=== PATIENT | male | born 1960 | race African-American/Black ===

== ENCOUNTER 2016-07-04 10:53 | Inpatient (IN) | payer MEDICAID ==
[~2016-07-04] VITALS: Ht 193 cm; Wt 134.9 kg
[~2016-07-04 10:53] MED LIST: AMLO10TA2 PO; CANA300T OR; CEPH-37 PO; FLUO20CA19 PO; GLIP-115 PO; LISI10TA6 PO; METF-312 PO; METO25TA5 PO; NOR10T; PANT1INJ3 PO; ZOLP10TA6 PO
[2016-07-04] MEDS ORDERED: SODIUM CHLORIDE 0.9% 1,000 ML IV ONE (11:48)
[2016-07-04] MEDS ORDERED: MORPHINE SULFATE 4 MG/ML SYRG IV ONE (12:00)
[2016-07-04] MEDS ORDERED: ONDANSETRON HCL 4 MG/2 ML VIAL IV ONE (12:00)
[2016-07-04 12:37] LABS: Basophils # (auto) 0 uL; Basophils % (auto) 0.2 % (0.0-2.0); Eosinophils # (auto) 0.1 uL; Eosinophils % (auto) 0.5 % (0.0-7.0); Hematocrit 45.1 % (41.0-53.0); Hemoglobin 14.8 g/dL (13.5-17.5); Lymphocytes # (auto) 1.3 uL; Lymphocytes % (auto) 10.9 % (10.0-50.0); Mean Corpuscular Hgb Conc. 32.8 g/dL (32.0-36.0); Mean Corpuscular Volume 85.3 fL (80.0-100.0); Mean Platelet Volume 8.5 fL (7.4-10.4); Monocytes # (auto) 0.3 uL; Monocytes % (auto) 2.8 % (0.0-12.0); Neutrophils # (auto) 10.2 uL; Neutrophils % (auto) 85.6 % (37.0-80.0); Platelet Count (auto) 318 10^3/uL (140-450); Red Cell Distribution Width 14.3 % (11.6-16.0); White Blood Cell 11.9 10^3/uL (4.4-10.8)
[2016-07-04 12:50] LABS: INR 1.04 (0.9-1.15); Partial Thromboplastin Time 28.7 sec (22.64-33.71); Prothrombin Time 10.7 sec (9.37-12.3)
[2016-07-04] MEDS: SODIUM CHLORIDE 0.9% 1,000 ML IV SCH ×2 (12:51→23:45)
[2016-07-04] MEDS ORDERED: DEXTROSE (50%) 50ML SYRG IV PRN (13:00)
[2016-07-04] MEDS ORDERED: LORazepam 0.5 MG TAB PO PRN (13:00)
[2016-07-04] MEDS ORDERED: cefTRIAXone 1GM/50ML D5W 50 ML IV ONE (13:00)
[2016-07-04] MEDS ORDERED: MILK OF MAGNESIA 30ML SUSP PO PRN (13:00)
[2016-07-04] MEDS ORDERED: MORPHINE SULF INJ 2 MG/ML SYRINGE 1ML IV PRN (13:00)
[2016-07-04] MEDS ORDERED: PROMETHAZINE HCL 25 MG/ML 1ML IV PRN (13:00)
[2016-07-04] MEDS ORDERED: NITROGLYCERIN 0.4 MG SL TAB SL PRN (13:00)
[2016-07-04 13:06] LABS: Albumin 3.6 g/dL (3.4-5.0); BUN/Creatinine Ratio 12.6; Calcium 9.1 mg/dL (8.5-10.1); Magnesium 1.9 mg/dL (1.6-2.6); Potassium 4.3 mmol/L (3.5-5.1)
[2016-07-04 13:10] LABS: Bilirubin, Total 0.6 mg/dL (0.2-1.0); Total Protein 7.9 g/dL (6.4-8.2)
[2016-07-04] MEDS ORDERED: ENOXAPARIN SOD 40 MG/0.4 ML SYRINGE SC ONE (13:15)
[2016-07-04] MEDS ORDERED: FAMOTIDINE 20 MG TAB PO ONE (13:15)
[2016-07-04 15:13] LABS: Urine Bilirubin Negative (Negative); Urine Blood Negative /uL (Negative); Urine Color Yellow (Yellow); Urine Hyaline Cast FEW /lpf (0 - 2); Urine Ketone Negative (Negative); Urine Mucus FEW (None Seen); Urine Nitrite Negative (Negative); Urine RBC 1 /hpf (0 - 3); Urine Squamous Epithelial Cell FEW /hpf (<5); Urine pH 5.5 (5.0-8.0)
[2016-07-04 15:14] LABS: Urine Glucose 3+ mg/dL (Normal)
[2016-07-04] MEDS: MORPHINE SULF INJ 2 MG/ML SYRINGE 1ML IV PRN ×2 (16:39→23:45)
[2016-07-04] MEDS ORDERED: ACETAMINOPHEN 325 MG TAB PO ONE (17:00)
[2016-07-04] MEDS: metroNIDAZOLE 500MG/100ML 100 ML IV SCH ×2 (18:22→23:45)
[2016-07-04] MEDS: ACCU-CHEK COMFORT CURVE STRIP VI SCH ×2 (19:28→23:45)
[2016-07-04] MEDS: InsuLIN REG 1unit/0.01ml Soln (100units/ml) SC SCH ×2 (19:38→23:53)
[2016-07-04] MEDS: FAMOTIDINE 20 MG TAB PO SCH (21:51)
[2016-07-04 23:57] VITALS: BP 129/86
[2016-07-05] VITALS (7 sets, daily range): BP systolic 137–169; BP diastolic 71–96
[2016-07-05] MEDS: metroNIDAZOLE 500MG/100ML 100 ML IV SCH ×4 (05:54→23:38)
[2016-07-05] MEDS: ACCU-CHEK COMFORT CURVE STRIP VI SCH ×4 (05:54→23:38)
[2016-07-05] MEDS: InsuLIN REG 1unit/0.01ml Soln (100units/ml) SC SCH ×3 (05:55→18:11)
[2016-07-05] MEDS: MORPHINE SULF INJ 2 MG/ML SYRINGE 1ML IV PRN ×3 (06:28→14:00)
[2016-07-05 06:47] LABS: Basophils # (auto) 0 uL; Basophils % (auto) 0.1 % (0.0-2.0); Eosinophils # (auto) 0.1 uL; Eosinophils % (auto) 0.7 % (0.0-7.0); Hematocrit 39.5 % (41.0-53.0); Hemoglobin 12.8 g/dL (13.5-17.5); Lymphocytes # (auto) 1.1 uL; Mean Corpuscular Hemoglobin 27.9 pg (28.0-32.0); Mean Corpuscular Hgb Conc. 32.5 g/dL (32.0-36.0); Mean Corpuscular Volume 85.9 fL (80.0-100.0); Mean Platelet Volume 7.9 fL (7.4-10.4); Monocytes # (auto) 0.2 uL; Monocytes % (auto) 2.2 % (0.0-12.0); Neutrophils # (auto) 6.7 uL; Platelet Count (auto) 262 10^3/uL (140-450); Red Cell Distribution Width 14.1 % (11.6-16.0)
[2016-07-05 07:35] LABS: BUN/Creatinine Ratio 12.3; Bilirubin, Total 0.4 mg/dL (0.2-1.0); Calcium 8.2 mg/dL (8.5-10.1); Potassium 3.8 mmol/L (3.5-5.1); Total Protein 6.8 g/dL (6.4-8.2)
[2016-07-05] MEDS: SODIUM CHLORIDE 0.9% 1,000 ML IV SCH ×2 (09:03→18:30)
[2016-07-05] MEDS: cefTRIAXone 1GM/50ML D5W 50 ML IV SCH (09:08)
[2016-07-05] MEDS: FAMOTIDINE 20 MG TAB PO SCH ×2 (09:08→21:06)
[2016-07-05] MEDS: ENOXAPARIN SOD 40 MG/0.4 ML SYRINGE SC SCH (09:09)
[2016-07-05] MEDS ORDERED: MANNITOL FTV 25% 12.5 GM/50 ML 50 ML IV ONE ×2 (10:45→12:00)
[2016-07-06] MEDS: InsuLIN REG 1unit/0.01ml Soln (100units/ml) SC SCH ×3 (00:16→12:25)
[2016-07-06] MEDS: SODIUM CHLORIDE 0.9% 1,000 ML IV SCH (01:29)
[2016-07-06 05:30] VITALS: BP 141/87
[2016-07-06] MEDS: metroNIDAZOLE 500MG/100ML 100 ML IV SCH ×2 (05:38→11:45)
[2016-07-06] MEDS: ACCU-CHEK COMFORT CURVE STRIP VI SCH ×2 (06:19→11:45)
[2016-07-06 08:00] VITALS: BP 172/96
[2016-07-06] MEDS: cefTRIAXone 1GM/50ML D5W 50 ML IV SCH (09:38)
[2016-07-06] MEDS: ENOXAPARIN SOD 40 MG/0.4 ML SYRINGE SC SCH (10:42)
[2016-07-06] MEDS: FAMOTIDINE 20 MG TAB PO SCH (10:42)
[2016-07-06 13:00] VITALS: BP 173/88
[2016-07-06] MEDS ORDERED: amLODIPine BESYLATE 5 MG TAB PO ONE (16:15)
[2016-07-06] MEDS ORDERED: METOPROLOL TARTRATE 25 MG TAB PO ONE (16:15)
[2016-07-06] MEDS ORDERED: LISINOPRIL 10 MG TAB PO ONE (16:15)
[2016-07-06 16:16] VITALS: BP 179/88
== END 2016-07-06 17:30 | disposition home or self-care (01) | DRG 249 ==
LOC: ER 10:56 → TELE 10:57 → TELE-E-ADS 14:56 → TELE-CENTR 20:50 → CENTRAL 07-05 16:50
PROVIDERS: ADMIT Internal Medicine; ATTEND Internal Medicine Pulmonary Disease
DX: K52.9 Noninfective gastroenteritis and colitis, unspecified (principal); E11.22 Type 2 diabetes mellitus with diabetic chronic kidney disease; K76.0 Fatty (change of) liver, not elsewhere classified; N12 Tubulo-interstitial nephritis, not specified as acute or chronic; F11.20 Opioid dependence, uncomplicated; N20.0 Calculus of kidney; D72.829 Elevated white blood cell count, unspecified; N39.0 Urinary tract infection, site not specified; E78.5 Hyperlipidemia, unspecified; N18.9 Chronic kidney disease, unspecified; I12.9 Hypertensive chronic kidney disease with stage 1 through stage 4 chronic kidney disease, or unspecified chronic kidney disease; F32.9 Major depressive disorder, single episode, unspecified; G89.29 Other chronic pain; F17.210 Nicotine dependence, cigarettes, uncomplicated; Z83.3 Family history of diabetes mellitus; Z82.49 Family history of ischemic heart disease and other diseases of the circulatory system; Z98.890 Other specified postprocedural states; Z84.1 Family history of disorders of kidney and ureter
CPT/HCPCS: 36415; 71010; 74176; 80053; 80061; 81001; 82150; 82270; 82378; 82962; 83036; 83690; 83735; 84484; 85025; 85610; 85652; 85730; 86141; 87081; 87086; 87493; 93005; 94761; 96361; 96365; 96372; 96375; J0696; J1815; J2405; J3490

== ENCOUNTER 2016-08-01 08:56 | Inpatient (IN) | payer MEDICAID ==
[~2016-08-01] VITALS: Ht 193 cm; Wt 142.0 kg
[~2016-08-01 08:56] MED LIST changes: -CEPH-37 PO
[2016-08-01 09:37] LABS: Basophils # (auto) 0.1 uL; Basophils % (auto) 0.7 % (0.0-2.0); Eosinophils # (auto) 0.2 uL; Eosinophils % (auto) 1.5 % (0.0-7.0); Hemoglobin 13.1 g/dL (13.5-17.5); Lymphocytes # (auto) 2.8 uL; Lymphocytes % (auto) 25.3 % (10.0-50.0); Mean Corpuscular Hemoglobin 27.8 pg (28.0-32.0); Mean Corpuscular Hgb Conc. 32.8 g/dL (32.0-36.0); Mean Corpuscular Volume 84.7 fL (80.0-100.0); Mean Platelet Volume 8.2 fL (7.4-10.4); Monocytes # (auto) 0.6 uL; Monocytes % (auto) 4.9 % (0.0-12.0); Neutrophils # (auto) 7.6 uL; Neutrophils % (auto) 67.6 % (37.0-80.0); Platelet Count (auto) 296 10^3/uL (140-450); Red Cell Distribution Width 14.3 % (11.6-16.0); White Blood Cell 11.2 10^3/uL (4.4-10.8)
[2016-08-01 10:45] LABS: Albumin 3.6 g/dL (3.4-5.0); BUN/Creatinine Ratio 11.9; Bilirubin, Total 0.2 mg/dL (0.2-1.0); Calcium 8.9 mg/dL (8.5-10.1); Total Protein 7.4 g/dL (6.4-8.2)
[2016-08-01 11:04] LABS: Potassium 3.9 mmol/L (3.5-5.1)
[2016-08-01 12:25] LABS: Magnesium 2.1 mg/dL (1.6-2.6)
[2016-08-01 12:30] LABS: INR 0.98 (0.9-1.15); Partial Thromboplastin Time 29.3 sec (22.64-33.71); Prothrombin Time 10.1 sec (9.37-12.3)
[2016-08-01] MEDS ORDERED: KETOROLAC TROMETH 30 MG/ML 1ML VIAL IV ONE (14:30)
[2016-08-01] MEDS ORDERED: PANTOPRAZOLE SODIUM 40 MG/10 ML VIAL IV ONE (14:30)
[2016-08-01] MEDS ORDERED: cefTRIAXone 1GM/50ML D5W 50 ML IV ONE (14:30)
[2016-08-01] MEDS ORDERED: ONDANSETRON HCL 4 MG/2 ML VIAL IV ONE (14:30)
[2016-08-01] MEDS ORDERED: ONDANSETRON HCL 4 MG/2 ML VIAL IV PRN (16:30)
[2016-08-01] MEDS ORDERED: TEMAZEPAM 15 MG CAP PO PRN (16:30)
[2016-08-01] MEDS ORDERED: DEXTROSE (50%) 50ML SYRG IV PRN (16:30)
[2016-08-01] MEDS ORDERED: ACETAMINOPHEN 325 MG TAB PO PRN (16:30)
[2016-08-01] MEDS ORDERED: PANTOPRAZOLE 40 MG TAB PO ONE (16:30)
[2016-08-01] MEDS: ACCU-CHEK COMFORT CURVE STRIP VI SCH ×2 (17:00→22:12)
[2016-08-01 17:21] LABS: Urine Bilirubin Negative (Negative); Urine Blood Negative /uL (Negative); Urine Color Yellow (Yellow); Urine Glucose TRACE mg/dL (Normal); Urine Hyaline Cast FEW /lpf (0 - 2); Urine Ketone Negative (Negative); Urine Nitrite Negative (Negative); Urine RBC 1 /hpf (0 - 3); Urine Squamous Epithelial Cell FEW /hpf (<5); Urine pH 5.5 (5.0-8.0)
[2016-08-01] MEDS: InsuLIN REG 1unit/0.01ml Soln (100units/ml) SC SCH ×2 (19:15→22:49)
[2016-08-01] MEDS ORDERED: FAMOTIDINE 20 MG TAB PO SCH (22:00)
[2016-08-01] MEDS: MORPHINE SULF INJ 2 MG/ML SYRINGE 1ML IV PRN (22:10)
[2016-08-01] MEDS: SODIUM CHLOR 0.9% PF (SALINE LOCK) 10ML VIAL IV SCH (22:11)
[2016-08-01] MEDS: metroNIDAZOLE 500MG/100ML 100 ML IV SCH (22:11)
[2016-08-01] MEDS: METOPROLOL TARTRATE 25 MG TAB PO SCH (22:12)
[2016-08-01 22:45] VITALS: BP 153/96
[2016-08-01 23:14] VITALS: BP 153/96
[2016-08-02] MEDS: MORPHINE SULF INJ 2 MG/ML SYRINGE 1ML IV PRN ×3 (04:50→20:45)
[2016-08-02 05:03] VITALS: BP 138/91
[2016-08-02] MEDS: metroNIDAZOLE 500MG/100ML 100 ML IV SCH (05:39)
[2016-08-02] MEDS: SODIUM CHLOR 0.9% PF (SALINE LOCK) 10ML VIAL IV SCH ×3 (05:39→22:09)
[2016-08-02] MEDS: ACCU-CHEK COMFORT CURVE STRIP VI SCH ×4 (06:33→22:10)
[2016-08-02] MEDS: InsuLIN REG 1unit/0.01ml Soln (100units/ml) SC SCH ×4 (06:37→22:14)
[2016-08-02] MEDS: glipiZIDE 5 MG TAB PO SCH (06:38)
[2016-08-02 06:47] LABS: Albumin 3.1 g/dL (3.4-5.0); BUN/Creatinine Ratio 13.8; Bilirubin, Total 0.3 mg/dL (0.2-1.0); Calcium 8.5 mg/dL (8.5-10.1); Potassium 4.1 mmol/L (3.5-5.1)
[2016-08-02 06:49] LABS: Basophils # (auto) 0 uL; Basophils % (auto) 0.3 % (0.0-2.0); Eosinophils # (auto) 0.2 uL; Eosinophils % (auto) 1.9 % (0.0-7.0); Hematocrit 37.8 % (41.0-53.0); Hemoglobin 12.5 g/dL (13.5-17.5); Lymphocytes # (auto) 3.3 uL; Lymphocytes % (auto) 33.4 % (10.0-50.0); Mean Corpuscular Hemoglobin 28.2 pg (28.0-32.0); Mean Corpuscular Volume 85.3 fL (80.0-100.0); Mean Platelet Volume 8.4 fL (7.4-10.4); Monocytes # (auto) 0.5 uL; Monocytes % (auto) 5.3 % (0.0-12.0); Neutrophils # (auto) 5.9 uL; Neutrophils % (auto) 59.1 % (37.0-80.0); Platelet Count (auto) 272 10^3/uL (140-450); Red Cell Distribution Width 13.9 % (11.6-16.0)
[2016-08-02 07:52] VITALS: BP 105/90
[2016-08-02] MEDS ORDERED: cefTRIAXone 1GM/50ML D5W 50 ML IV SCH (09:00)
[2016-08-02] MEDS: METOPROLOL TARTRATE 25 MG TAB PO SCH ×2 (09:43→22:09)
[2016-08-02] MEDS: MULTIPLE VITAMIN TAB PO SCH (09:43)
[2016-08-02] MEDS: amLODIPine BESYLATE 5 MG TAB PO SCH (09:44)
[2016-08-02] MEDS: FLUoxetine HCL 20 MG CAP PO SCH (09:44)
[2016-08-02] MEDS: LISINOPRIL 10 MG TAB PO SCH (09:45)
[2016-08-02] MEDS: INVOKANA 300 MG PO SCH (09:53)
[2016-08-02] MEDS ORDERED: PANTOPRAZOLE 40 MG TAB PO SCH (10:00)
[2016-08-02] MEDS: HYDROcodone-ACET 10/325MG TAB PO PRN (12:27)
[2016-08-02 13:30] VITALS: BP 134/86
[2016-08-02 17:00] VITALS: BP 116/72
[2016-08-02] MEDS: PANTOPRAZOLE 40 MG TAB PO SCH (22:09)
[2016-08-02 22:16] VITALS: BP 132/73
[2016-08-03] MEDS: HYDROcodone-ACET 10/325MG TAB PO PRN (00:10)
[2016-08-03 05:08] VITALS: BP 133/83
[2016-08-03] MEDS: SODIUM CHLOR 0.9% PF (SALINE LOCK) 10ML VIAL IV SCH ×2 (05:41→13:45)
[2016-08-03] MEDS: glipiZIDE 5 MG TAB PO SCH (06:40)
[2016-08-03] MEDS: ACCU-CHEK COMFORT CURVE STRIP VI SCH ×2 (06:40→11:47)
[2016-08-03] MEDS: InsuLIN REG 1unit/0.01ml Soln (100units/ml) SC SCH ×2 (06:41→11:30)
[2016-08-03 08:30] VITALS: BP 144/71
[2016-08-03] MEDS ORDERED: LIDOCAINE VISCOUS 2% 15ML UD ONE (08:34)
[2016-08-03] MEDS ORDERED: NALOXONE HCL 0.4 MG/ML VIAL ONE (08:34)
[2016-08-03] MEDS ORDERED: SODIUM CHLORIDE LOCK 10 ML ONE (08:34)
[2016-08-03] MEDS ORDERED: FLUMAZENIL 0.1 MG/ML INJ 10ML MDV IV ONE (08:34)
[2016-08-03] MEDS ORDERED: diphenhdrAMINE HCL 50 MG/1 ML VL ONE (08:34)
[2016-08-03] MEDS: MULTIPLE VITAMIN TAB PO SCH (10:00)
[2016-08-03] MEDS: INVOKANA 300 MG PO SCH (10:00)
[2016-08-03] MEDS: PANTOPRAZOLE 40 MG TAB PO SCH (10:00)
[2016-08-03] MEDS: amLODIPine BESYLATE 5 MG TAB PO SCH (10:08)
[2016-08-03] MEDS: METOPROLOL TARTRATE 25 MG TAB PO SCH (10:08)
[2016-08-03] MEDS: LISINOPRIL 10 MG TAB PO SCH (10:09)
[2016-08-03] MEDS: FLUoxetine HCL 20 MG CAP PO SCH (10:09)
[2016-08-03] MEDS ORDERED: PANT40T PO (10:32)
[2016-08-03] MEDS: MIDAZOLAM HCL 5 MG/ML-1ML VIAL ONE ×2 (12:03→12:06)
[2016-08-03] MEDS: fentaNYL CITRATE 100 MCG/2 ML VL ONE ×2 (12:03→12:06)
[2016-08-03 14:36] VITALS: BP 133/72
== END 2016-08-03 16:30 | disposition home or self-care (01) | DRG 241 ==
LOC: ER 09:00 → OVERFLOW 09:01 → WEST WING 21:10
PROVIDERS: ADMIT Internal Medicine; ATTEND Internal Medicine
PROC: 0DB68ZX Excision of Stomach, Via Natural or Artificial Opening Endoscopic, Diagnostic (ICD-10-PCS; principal; 2016-08-03 12:01)
DX: K29.70 Gastritis, unspecified, without bleeding (principal); K85.00 Idiopathic acute pancreatitis without necrosis or infection; J18.1 Lobar pneumonia, unspecified organism; K76.0 Fatty (change of) liver, not elsewhere classified; I10 Essential (primary) hypertension; D63.8 Anemia in other chronic diseases classified elsewhere; E11.9 Type 2 diabetes mellitus without complications; F32.9 Major depressive disorder, single episode, unspecified; F17.210 Nicotine dependence, cigarettes, uncomplicated; E78.5 Hyperlipidemia, unspecified; K44.9 Diaphragmatic hernia without obstruction or gangrene; E66.9 Obesity, unspecified; Z68.38 Body mass index [BMI] 38.0-38.9, adult; Z82.49 Family history of ischemic heart disease and other diseases of the circulatory system; Z83.3 Family history of diabetes mellitus; Z84.1 Family history of disorders of kidney and ureter; Z98.890 Other specified postprocedural states
CPT/HCPCS: 36415; 43239; 71010; 74176; 80053; 81001; 82150; 82270; 82962; 83036; 83690; 83735; 85025; 85610; 85730; 87040; 87045; 87081; 87086; 87493; 87899; 93005; 94761; 96365; 96366; 96375; C9113; J0696; J1815; J1885; J2250; J2405; J3490

== ENCOUNTER 2016-09-17 14:15 | Emergency (ER) | payer MEDICAID ==
[~2016-09-17] VITALS: Ht 193 cm; Wt 131.5 kg
[~2016-09-17 14:15] MED LIST changes: -PANT1INJ3 PO; +PANT40T PO
[2016-09-17 14:24] VITALS: BP 157/93
== END 2016-09-17 17:02 | disposition home or self-care (01) ==
LOC: ER 14:15
DX: N39.0 Urinary tract infection, site not specified (principal); E11.9 Type 2 diabetes mellitus without complications; I13.0 Hypertensive heart and chronic kidney disease with heart failure and stage 1 through stage 4 chronic kidney disease, or unspecified chronic kidney disease; N18.9 Chronic kidney disease, unspecified; I50.9 Heart failure, unspecified; E78.5 Hyperlipidemia, unspecified; F17.210 Nicotine dependence, cigarettes, uncomplicated; Z98.890 Other specified postprocedural states
CPT/HCPCS: 81002

== ENCOUNTER 2017-03-07 12:09 | Inpatient (IN) | payer MEDICAID ==
[~2017-03-07] VITALS: Ht 165.1 cm; Wt 126.7 kg
[~2017-03-07 12:09] MED LIST changes: -METF-312 PO; +METF-370 PO
[2017-03-07] MEDS ORDERED: cloNIDine HCL 0.1 MG TAB ONE (12:19)
[2017-03-07] MEDS ORDERED: ASPirin 325 MG TAB ONE (12:19)
[2017-03-07] MEDS ORDERED: ASPirin 325 MG TAB PO ONE (12:30)
[2017-03-07] MEDS ORDERED: cloNIDine HCL 0.1 MG TAB PO ONE ×2 (12:30→14:30)
[2017-03-07 13:03] LABS: Basophils # (auto) 0.1 uL; Basophils % (auto) 0.8 % (0.0-2.0); Eosinophils # (auto) 0.1 uL; Eosinophils % (auto) 1.2 % (0.0-7.0); Hematocrit 41.7 % (41.0-53.0); Hemoglobin 13.6 g/dL (13.5-17.5); Lymphocytes # (auto) 3.3 uL; Mean Corpuscular Hemoglobin 28.5 pg (28.0-32.0); Mean Corpuscular Hgb Conc. 32.7 g/dL (32.0-36.0); Mean Corpuscular Volume 87.2 fL (80.0-100.0); Mean Platelet Volume 7.6 fL (6.9-10.8); Monocytes # (auto) 0.5 uL; Monocytes % (auto) 4.9 % (0.0-12.0); Neutrophils % (auto) 63.1 % (37.0-80.0); Nucleated Red Blood Cells % 0.2 %; Platelet Count (auto) 280 10^3/uL (140-450); Red Cell Distribution Width 13.1 % (11.8-14.3); White Blood Cell 11.1 10^3/uL (4.4-10.8)
[2017-03-07] MEDS ORDERED: amLODIPine BESYLATE 5 MG TAB PO ONE (13:30)
[2017-03-07 13:46] LABS: Albumin 3.4 g/dL (3.4-5.0); BUN/Creatinine Ratio 12.3; Bilirubin, Total 0.4 mg/dL (0.2-1.0); Calcium 8.8 mg/dL (8.5-10.1); Potassium 3.7 mmol/L (3.5-5.1); Total Protein 7.6 g/dL (6.4-8.2)
[2017-03-07] MEDS ORDERED: ENOXAPARIN SOD 150 MG/1 ML SYRINGE SC ONE (14:45)
[2017-03-07] MEDS ORDERED: SODIUM CHLORIDE 0.9% 1,000 ML IV ONE (14:47)
[2017-03-07] MEDS ORDERED: ONDANSETRON HCL 4 MG/2 ML VIAL IV PRN (15:15)
[2017-03-07] MEDS ORDERED: NICOTINE 21MG/24 HR TOPICAL PATCH TD ONE (15:15)
[2017-03-07] MEDS ORDERED: NITROGLYCERIN 0.4 MG SL TAB SL PRN (15:15)
[2017-03-07] MEDS ORDERED: DEXTROSE (50%) 50ML SYRG IV PRN (15:15)
[2017-03-07] MEDS ORDERED: MORPHINE SULFATE 10 MG/ML INJ 1ML SDV IV ONE (15:15)
[2017-03-07] MEDS ORDERED: MORPHINE SULFATE 10 MG/ML INJ 1ML SDV IV PRN (15:15)
[2017-03-07] MEDS ORDERED: LABETALOL HCL 5 MG/ML ML 20ML VIAL IV PRN (15:15)
[2017-03-07 15:18] LABS: Urine Bilirubin Negative (Negative); Urine Blood Negative /uL (Negative); Urine Color Yellow (Yellow); Urine Glucose TRACE mg/dL (Normal); Urine Ketone Negative (Negative); Urine Mucus FEW (None Seen); Urine Nitrite Negative (Negative); Urine RBC 2 /hpf (0 - 3); Urine Squamous Epithelial Cell FEW /hpf (<5)
[2017-03-07] MEDS ORDERED: NITROGLYCERIN 0.2MG/HR TOPICAL PATCH TD ONE (15:30)
[2017-03-07] MEDS ORDERED: LISINOPRIL 10 MG TAB PO ONE (15:45)
[2017-03-07 15:52] LABS: Magnesium 1.9 mg/dL (1.6-2.6)
[2017-03-07] MEDS: ACCU-CHEK COMFORT CURVE STRIP VI SCH ×2 (17:04→22:00)
[2017-03-07] MEDS: InsuLIN REG 1unit/0.01ml Soln (100units/ml) SC SCH ×2 (17:04→23:18)
[2017-03-07] MEDS: HYDROcodone-ACET 5/325MG TAB PO PRN (19:24)
[2017-03-07 21:26] VITALS: BP 124/75
[2017-03-07 21:30] VITALS: BP 124/75
[2017-03-07] MEDS ORDERED: ATORVASTATIN 20 MG TAB PO SCH (22:00)
[2017-03-07] MEDS: METOPROLOL TARTRATE 25 MG TAB PO SCH (23:18)
[2017-03-07] MEDS: MORPHINE SULFATE 10 MG/ML INJ 1ML SDV IV PRN (23:19)
[2017-03-08 04:53] VITALS: BP 125/82
[2017-03-08 05:19] LABS: Basophils # (auto) 0.1 uL; Basophils % (auto) 0.7 % (0.0-2.0); Eosinophils # (auto) 0.2 uL; Eosinophils % (auto) 1.5 % (0.0-7.0); Hematocrit 38.8 % (41.0-53.0); Hemoglobin 12.8 g/dL (13.5-17.5); Lymphocytes # (auto) 3.6 uL; Lymphocytes % (auto) 32.5 % (10.0-50.0); Mean Corpuscular Hemoglobin 29.1 pg (28.0-32.0); Mean Corpuscular Volume 88.1 fL (80.0-100.0); Mean Platelet Volume 7.4 fL (6.9-10.8); Monocytes # (auto) 0.6 uL; Monocytes % (auto) 5.4 % (0.0-12.0); Neutrophils # (auto) 6.6 uL; Neutrophils % (auto) 59.9 % (37.0-80.0); Nucleated Red Blood Cells % 0.1 %; Platelet Count (auto) 253 10^3/uL (140-450); Red Cell Distribution Width 13.3 % (11.8-14.3)
[2017-03-08 05:46] LABS: BUN/Creatinine Ratio 13.6; Calcium 8.5 mg/dL (8.5-10.1); Potassium 3.7 mmol/L (3.5-5.1)
[2017-03-08] MEDS: InsuLIN REG 1unit/0.01ml Soln (100units/ml) SC SCH ×2 (06:49→12:36)
[2017-03-08] MEDS: ACCU-CHEK COMFORT CURVE STRIP VI SCH ×2 (06:49→12:36)
[2017-03-08] MEDS: MORPHINE SULFATE 10 MG/ML INJ 1ML SDV IV PRN (07:06)
[2017-03-08 08:04] VITALS: BP 127/82
[2017-03-08] MEDS: HYDROcodone-ACET 5/325MG TAB PO PRN (08:34)
[2017-03-08] MEDS ORDERED: amLODIPine BESYLATE 5 MG TAB PO SCH (10:00)
[2017-03-08] MEDS ORDERED: NICOTINE 21MG/24 HR TOPICAL PATCH TD SCH (10:00)
[2017-03-08] MEDS ORDERED: ASPirin 81 mg TAB PO SCH (10:00)
[2017-03-08] MEDS ORDERED: LISINOPRIL 10 MG TAB PO SCH (10:00)
[2017-03-08] MEDS ORDERED: PANTOPRAZOLE 40 MG/10 ML VIAL IV SCH (10:00)
[2017-03-08] MEDS ORDERED: NITROGLYCERIN 0.2MG/HR TOPICAL PATCH TD SCH (10:00)
[2017-03-08] MEDS: METOPROLOL TARTRATE 25 MG TAB PO SCH (11:01)
[2017-03-08 13:51] VITALS: BP 128/79
[2017-03-08 16:02] VITALS: BP 128/79
== END 2017-03-08 16:15 | disposition home or self-care (01) | DRG 199 ==
LOC: ER 12:09 → TELE 12:10 → TELE-WESTW 20:30
PROVIDERS: ADMIT Internal Medicine; ATTEND Internal Medicine
DX: I11.9 Hypertensive heart disease without heart failure (principal); I24.9 Acute ischemic heart disease, unspecified; I15.8 Other secondary hypertension; Z68.42 Body mass index [BMI] 45.0-49.9, adult; E11.9 Type 2 diabetes mellitus without complications; D72.829 Elevated white blood cell count, unspecified; F32.9 Major depressive disorder, single episode, unspecified; J44.9 Chronic obstructive pulmonary disease, unspecified; F17.210 Nicotine dependence, cigarettes, uncomplicated; K21.9 Gastro-esophageal reflux disease without esophagitis; K29.70 Gastritis, unspecified, without bleeding; E66.9 Obesity, unspecified; S63.501A Unspecified sprain of right wrist, initial encounter; X58.XXXA Exposure to other specified factors, initial encounter; J98.11 Atelectasis; K44.9 Diaphragmatic hernia without obstruction or gangrene; Z79.84 Long term (current) use of oral hypoglycemic drugs; Z79.899 Other long term (current) drug therapy; Z82.49 Family history of ischemic heart disease and other diseases of the circulatory system; Z83.3 Family history of diabetes mellitus; Z91.14 Patient's other noncompliance with medication regimen; Z91.19 Patient's noncompliance with other medical treatment and regimen; Y93.89 Activity, other specified; Y92.89 Other specified places as the place of occurrence of the external cause; Y99.8 Other external cause status
CPT/HCPCS: 36415; 71010; 73100; 80048; 80053; 80061; 80307; 81001; 82962; 83036; 83735; 84484; 85025; 93005; 93306; 96361; 96372; 96374; C9113; J1815

== ENCOUNTER 2017-10-06 07:05 | Emergency (ER) | payer MEDICAID ==
[~2017-10-06] VITALS: Ht 193 cm; Wt 117.9 kg
[2017-10-06] MEDS ORDERED: HYDROcodone-ACET 7.5/325MG TAB PO ONE (08:00)
[2017-10-06 08:39] VITALS: BP 169/98
== END 2017-10-06 08:54 | disposition home or self-care (01) ==
LOC: ER 07:05
DX: M23.92 Unspecified internal derangement of left knee (principal); I12.9 Hypertensive chronic kidney disease with stage 1 through stage 4 chronic kidney disease, or unspecified chronic kidney disease; N18.9 Chronic kidney disease, unspecified; E11.22 Type 2 diabetes mellitus with diabetic chronic kidney disease; E78.5 Hyperlipidemia, unspecified; F17.210 Nicotine dependence, cigarettes, uncomplicated; Z79.84 Long term (current) use of oral hypoglycemic drugs
CPT/HCPCS: 73562

== ENCOUNTER 2017-10-31 13:04 | Emergency (ER) | payer MEDICAID ==
[~2017-10-31] VITALS: Ht 193 cm; Wt 125.2 kg
[2017-10-31 13:26] VITALS: BP 177/92
== END 2017-10-31 14:54 | disposition home or self-care (01) ==
LOC: ER 13:07
DX: G89.29 Other chronic pain (principal); M25.562 Pain in left knee; E11.22 Type 2 diabetes mellitus with diabetic chronic kidney disease; I12.9 Hypertensive chronic kidney disease with stage 1 through stage 4 chronic kidney disease, or unspecified chronic kidney disease; N18.9 Chronic kidney disease, unspecified; E78.5 Hyperlipidemia, unspecified; F17.210 Nicotine dependence, cigarettes, uncomplicated
CPT/HCPCS: 73562

== ENCOUNTER 2018-12-11 10:24 | Emergency (ER) | payer MEDICAID ==
[~2018-12-11] VITALS: Ht 193 cm; Wt 127.0 kg
[~2018-12-11 10:24] MED LIST changes: +AMLO10TA13 PO; -AMLO10TA2 PO; -GLIP-115 PO; +GLIP5TAB12 PO
[2018-12-11] MEDS ORDERED: cloNIDine HCL 0.1 MG TAB PO ONE (11:30)
[2018-12-11] MEDS ORDERED: HYDROcodone-ACET 5/325MG TAB PO ONE (11:30)
[2018-12-11] MEDS ORDERED: ONDANSETRON HCL 4 MG/2 ML VIAL ONE (11:33)
[2018-12-11] MEDS ORDERED: ONDANSETRON HCL 4 MG/2 ML VIAL IV ONE (11:45)
[2018-12-11 12:02] LABS: Basophils # (auto) 0 uL; Basophils % (auto) 0.3 % (0.0-2.0); Eosinophils # (auto) 0.1 uL; Hematocrit 43.3 % (41.0-53.0); Hemoglobin 14.2 g/dL (13.5-17.5); Lymphocytes # (auto) 3.6 uL; Mean Corpuscular Hemoglobin 28.2 pg (28.0-32.0); Mean Corpuscular Hgb Conc. 32.8 g/dL (32.0-36.0); Monocytes # (auto) 0.7 uL; Monocytes % (auto) 4.9 % (0.0-12.0); Neutrophils # (auto) 8.9 uL; Neutrophils % (auto) 66.8 % (37.0-80.0); Platelet Count (auto) 282 10^3/uL (140-450); Red Blood Cells 5.03 10^6/uL (4.5-5.90); Red Cell Distribution Width 13.9 % (11.8-14.3); White Blood Cell 13.4 10^3/uL (4.4-10.8)
[2018-12-11 12:21] LABS: INR 0.94 (0.9-1.15)
[2018-12-11 12:46] LABS: Albumin 3.6 g/dL (3.4-5.0); Calcium 8.5 mg/dL (8.5-10.1); Potassium 3.6 mmol/L (3.5-5.1)
[2018-12-11 12:53] LABS: BUN/Creatinine Ratio 11.9; Bilirubin, Total 0.4 mg/dL (0.2-1.0); Total Protein 7.8 g/dL (6.4-8.2)
[2018-12-11] MEDS ORDERED: amLODIPine BESYLATE 5 MG TAB PO ONE (13:15)
[2018-12-11 13:33] LABS: Urine Bacteria NONE SEEN /hpf (None Seen); Urine Blood Negative /uL (Negative); Urine Mucus FEW (None Seen); Urine Specific Gravity 1.022 (1.001-1.035); Urine WBC 58 /hpf (0 - 3)
[2018-12-11 13:40] LABS: Alcohol, Urine < 3.0 mg/dL (0-5); Amphetamine Screen, Urine NEGATIVE (NEGATIVE); Barbiturate Scree,Urine NEGATIVE (NEGATIVE); Benzodiazephine Screen, Urine NEGATIVE (NEGATIVE); Cannabinoid Screen, Urine NEGATIVE (NEGATIVE); Cocaine Screen, Urine NEGATIVE (NEGATIVE); Opiate Scree,Urine NEGATIVE (NEGATIVE); Phencyclidine Screen, Urine NEGATIVE (NEGATIVE)
[2018-12-11 14:27] VITALS: BP 169/98
== END 2018-12-11 14:28 | disposition home or self-care (01) ==
LOC: ER 10:24
DX: I10 Essential (primary) hypertension (principal); E11.9 Type 2 diabetes mellitus without complications; E78.5 Hyperlipidemia, unspecified; F17.210 Nicotine dependence, cigarettes, uncomplicated
CPT/HCPCS: 36415; 80053; 80307; 81001; 82962; 84484; 85025; 85610; 93005; 96374; 99284; J2405

== ENCOUNTER 2018-12-14 14:03 | Inpatient (IN) | payer MEDICAID ==
[~2018-12-14] VITALS: Ht 195.6 cm; Wt 124.4 kg
[2018-12-14 06:30] VITALS: BP 160/102
[2018-12-14] MEDS ORDERED: cloNIDine HCL 0.1 MG TAB PO ONE (14:45)
[2018-12-14] MEDS ORDERED: FUROSEMIDE 40 MG/4 ML VIAL IV ONE (15:30)
[2018-12-14 15:37] LABS: Urine Bacteria NONE SEEN /hpf (None Seen); Urine Blood Negative /uL (Negative); Urine Specific Gravity 1.019 (1.001-1.035); Urine WBC 37 /hpf (0 - 3)
[2018-12-14 15:50] LABS: Basophils # (auto) 0.1 uL; Basophils % (auto) 0.7 % (0.0-2.0); Eosinophils # (auto) 0.1 uL; Eosinophils % (auto) 0.9 % (0.0-7.0); Hematocrit 44.4 % (41.0-53.0); Hemoglobin 14.8 g/dL (13.5-17.5); Lymphocytes # (auto) 3.6 uL; Lymphocytes % (auto) 24.9 % (10.0-50.0); Mean Corpuscular Hemoglobin 28.3 pg (28.0-32.0); Mean Corpuscular Hgb Conc. 33.2 g/dL (32.0-36.0); Mean Corpuscular Volume 85.1 fL (80.0-100.0); Monocytes # (auto) 0.6 uL; Neutrophils # (auto) 9.9 uL; Neutrophils % (auto) 69.5 % (37.0-80.0); Nucleated Red Blood Cells % 0.1 %; Platelet Count (auto) 304 10^3/uL (140-450); Red Blood Cells 5.21 10^6/uL (4.5-5.90); Red Cell Distribution Width 14.2 % (11.8-14.3); White Blood Cell 14.3 10^3/uL (4.4-10.8)
[2018-12-14 16:09] LABS: BUN/Creatinine Ratio 12.9; Calcium 9.4 mg/dL (8.5-10.1); Potassium 3.8 mmol/L (3.5-5.1)
[2018-12-14 16:13] LABS: Bilirubin, Total 0.6 mg/dL (0.2-1.0); Total Protein 8.3 g/dL (6.4-8.2)
[2018-12-14 16:43] LABS: INR 0.96 (0.9-1.15); Partial Thromboplastin Time 26.8 sec (23.64-32.05)
[2018-12-14] MEDS ORDERED: ASPirin 81 mg TAB PO ONE (17:00)
[2018-12-14] MEDS ORDERED: cefTRIAXone 1GM/50ML D5W 50 ML IV ONE (17:15)
[2018-12-14] MEDS ORDERED: MORPHINE SULF INJ 2 MG/ML SYRINGE 1ML IV PRN (17:15)
[2018-12-14] MEDS ORDERED: DEXTROSE (50%) 50ML SYRG IV PRN (17:15)
[2018-12-14] MEDS ORDERED: PROMETHAZINE HCL 25 MG/ML 1ML IV PRN (17:15)
[2018-12-14] MEDS ORDERED: ENALAPRIL MALEATE 2.5 MG TAB PO ONE (17:15)
[2018-12-14] MEDS ORDERED: METOPROLOL TARTRATE 25 MG TAB PO ONE (17:15)
[2018-12-14] MEDS ORDERED: LACTULOSE 20Gm/30ML SOLN PO PRN (17:15)
[2018-12-14] MEDS ORDERED: TEMAZEPAM 15 MG CAP PO PRN (17:15)
[2018-12-14] MEDS ORDERED: NITROGLYCERIN 0.4 MG SL TAB SL ONE (17:22)
[2018-12-14] MEDS: NITROGLYCERIN 0.4 MG SL TAB SL PRN ×2 (17:25→17:28)
--- NOTE | 2018-12-14 18:20 | NUR ---
Patient arrived on unit Assumed care of patient, he is A & O x4, he was brought in a wheelchair. Patient is ambulatory. Patient states "I have a headache, I have been dizzy since I got here." He is on room air. No s/s of distress at this time. Vital signs charted in computer. He is tele 10, sinus rhythm at 84 bpm. POC discussed with patient. He has been oriented to the room and the hospital, bed is in low, locked position, call light within reach and educated about use of call light. Will continue with admission and monitor Q1h and PRN.
[2018-12-14 18:30] VITALS: BP 160/102
[2018-12-14 18:46] LABS: Alcohol, Urine < 3.0 mg/dL (0-5); Amphetamine Screen, Urine NEGATIVE (NEGATIVE); Barbiturate Scree,Urine NEGATIVE (NEGATIVE); Benzodiazephine Screen, Urine NEGATIVE (NEGATIVE); Cannabinoid Screen, Urine NEGATIVE (NEGATIVE); Cocaine Screen, Urine NEGATIVE (NEGATIVE); Opiate Scree,Urine NEGATIVE (NEGATIVE); Phencyclidine Screen, Urine NEGATIVE (NEGATIVE)
--- NOTE | 2018-12-14 19:10 | NUR ---
Report to NOC shift Report given to MURALI Smith. Completed as much of admission as possible. Notified Sarah of incomplete section. She is aware of patient pain and BP.
--- NOTE | 2018-12-14 19:20 | NUR ---
Opening Shift Note Assumed care of patient, awake and alert x4. No S/S of distress/SOB. Patient complaining of pain 6/0-10. Pain management options discussed. Instructed on POC and to call for assist PRN, will continue to monitor for changes Q1hr and PRN.
[2018-12-14 21:47] VITALS: BP 138/93
[2018-12-14] MEDS: METOPROLOL TARTRATE 25 MG TAB PO SCH (22:34)
[2018-12-14] MEDS: ATORVASTATIN 20 MG TAB PO SCH (22:34)
[2018-12-14] MEDS: InsuLIN REG 1unit/0.01ml Soln (100units/ml) SC SCH (22:35)
[2018-12-14] MEDS: ACCU-CHEK COMFORT CURVE STRIP VI SCH (22:35)
[2018-12-14] MEDS: SODIUM CHLORIDE 0.9% 1,000 ML IV SCH (22:35)
[2018-12-14] MEDS: traMADol HCL 50 MG TAB PO PRN (22:36)
[2018-12-14] MEDS ORDERED: PNEUMOCOCCAL VACC POLYS 25 MCG/0.5 ML VIAL IM ONE (23:45)
--- NOTE | 2018-12-14 23:53 | NUR ---
MRSA Nares sent to lab via bullet system.
[2018-12-15] VITALS (7 sets, daily range): BP systolic 139–175; BP diastolic 78–105
[2018-12-15] MEDS: SODIUM CHLORIDE 0.9% 1,000 ML IV SCH ×2 (06:28→22:08)
[2018-12-15] MEDS: ACCU-CHEK COMFORT CURVE STRIP VI SCH ×4 (06:50→22:12)
[2018-12-15] MEDS: InsuLIN REG 1unit/0.01ml Soln (100units/ml) SC SCH ×4 (06:50→22:11)
[2018-12-15 06:59] LABS: Basophils # (auto) 0.1 uL; Basophils % (auto) 0.7 % (0.0-2.0); Eosinophils # (auto) 0.2 uL; Eosinophils % (auto) 1.4 % (0.0-7.0); Hematocrit 42.1 % (41.0-53.0); Hemoglobin 13.7 g/dL (13.5-17.5); Lymphocytes # (auto) 3.3 uL; Mean Corpuscular Hemoglobin 28.2 pg (28.0-32.0); Mean Corpuscular Hgb Conc. 32.5 g/dL (32.0-36.0); Mean Corpuscular Volume 86.9 fL (80.0-100.0); Monocytes # (auto) 0.7 uL; Monocytes % (auto) 5.7 % (0.0-12.0); Neutrophils # (auto) 8.3 uL; Neutrophils % (auto) 66.2 % (37.0-80.0); Platelet Count (auto) 278 10^3/uL (140-450); Red Blood Cells 4.85 10^6/uL (4.5-5.90); Red Cell Distribution Width 14.4 % (11.8-14.3); White Blood Cell 12.6 10^3/uL (4.4-10.8)
--- NOTE | 2018-12-15 07:25 | NUR ---
Endorsed care to denzel Khan.
[2018-12-15 07:27] LABS: Albumin 3.4 g/dL (3.4-5.0); Calcium 9.1 mg/dL (8.5-10.1); Potassium 4.3 mmol/L (3.5-5.1)
--- NOTE | 2018-12-15 07:28 | NUR ---
Opening Shift Note Assumed care of patient, awake and alert. No S/S of distress/SOB or pain. Instructed on POC and to call for assist PRN, will continue to monitor for changes Q1hr and PRN.
[2018-12-15 07:32] LABS: BUN/Creatinine Ratio 15.9; Bilirubin, Total 0.5 mg/dL (0.2-1.0); Total Protein 7.7 g/dL (6.4-8.2)
[2018-12-15] MEDS: ENOXAPARIN SOD 40 MG/0.4 ML SYRINGE SC SCH (09:25)
[2018-12-15] MEDS: cefTRIAXone 1GM/50ML D5W 50 ML IV SCH (09:25)
[2018-12-15] MEDS: ASPirin 81 mg TAB PO SCH (09:25)
[2018-12-15] MEDS: PANTOPRAZOLE 40 MG TAB PO SCH (09:26)
[2018-12-15] MEDS: ENALAPRIL MALEATE 2.5 MG TAB PO SCH (09:26)
[2018-12-15] MEDS: METOPROLOL TARTRATE 25 MG TAB PO SCH (09:26)
[2018-12-15] MEDS: traMADol HCL 50 MG TAB PO PRN (09:28)
[2018-12-15] MEDS: NITROGLYCERIN 0.2MG/HR TOPICAL PATCH TD SCH (09:28)
[2018-12-15] MEDS ORDERED: METOPROLOL TARTRATE 25 MG TAB PO ONE (12:00)
[2018-12-15 12:33] LABS: Free T4 (Free Thyroxine) 0.85 ng/dL (0.89-1.76)
[2018-12-15 12:34] LABS: Folate (Folic Acid) 15.08 ng/mL (5.38-24)
[2018-12-15] MEDS: LABETALOL HCL 5 MG/ML ML 20ML VIAL IV PRN ×2 (13:16→18:16)
[2018-12-15] MEDS ORDERED: LIDOCAINE 2%HCL (LOCAL ANESTH.) INJ 20ML MDV ONE (14:57)
[2018-12-15] MEDS ORDERED: IOHEXOL 350 MG/ML 100ML IJ ONE (14:57)
[2018-12-15] MEDS ORDERED: MIDAZOLAM HCL 1MG/1ML-2 ML VIAL ONE ×2 (14:58→15:20)
[2018-12-15] MEDS ORDERED: SODIUM CHL 0.9% 0 ML ONE (14:58)
[2018-12-15] MEDS ORDERED: ANGIOMAX 250 MG VIAL IV ONE (14:58)
[2018-12-15] MEDS ORDERED: fentaNYL CITRATE 100 MCG/2 ML VL ONE (14:58)
[2018-12-15] MEDS ORDERED: diphenhdrAMINE HCL 50 MG/1 ML VL ONE (15:20)
--- NOTE | 2018-12-15 16:30 | NUR ---
Received referral to see pt who is homeless. 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 Will return to interview pt.
--- NOTE | 2018-12-15 17:02 | NUR ---
KAYLA ESTEVEZ brought to bed 285B following Cardiac catheterization, on color television console monitor and portable oxygen. Patient transferred to unit bed, connected to media monitor #[id number] and oxygen. Catheterization site assessed for any bleeding, redness or swelling. Dressing is clean, dry, and intact. No hematoma noted to site. Pedal pulses on affected leg assessed for positive tissue perfusion. Patient instructed on need to notify staff immediately if any pain, burning or wetness to site, and any lower back pain. Patient educated on new cardiac medications. All questions and concerns addressed, patient verbalized understanding of all education and instruction. See notes for any further.
--- NOTE | 2018-12-15 17:17 | NUR ---
Paged Dr. Bhat as requested by MD when patient returns to unit.
--- NOTE | 2018-12-15 19:10 | NUR ---
Change of shift given to night auditor RN. No distress noted.
--- NOTE | 2018-12-15 19:14 | NUR ---
Change of shift given to welder 2nd shift RN. No distress noted.
--- NOTE | 2018-12-15 19:20 | NUR ---
Opening Shift Note Assumed care of patient, awake and alert x4. No S/S of distress/SOB or pain. Right groin dressing from left heart cath is C/D/I. Instructed on POC and to call for assist PRN, will continue to monitor for changes Q1hr and PRN. Call light is within reach.
--- NOTE | 2018-12-15 20:04 | NUR ---
ENDORSED CARE TO ALMAS CARRION. Patient is resting in bed, no S/S of distress, SOB, or pain. Call light is within reach.
--- NOTE | 2018-12-15 20:40 | NUR ---
RADIOLOGY CALLED Per request from Dr. Bhat, spoke to radiology about about the head CT w/o contrast results and a scheduled carotid duplex. Radiology stated that they will looking into the results and scheduled carotid duplex.
[2018-12-15] MEDS: ATORVASTATIN 20 MG TAB PO SCH (21:47)
[2018-12-15] MEDS: METOPROLOL TARTRATE 50 MG TAB PO SCH (21:47)
[2018-12-16 05:26] VITALS: BP 149/90
--- NOTE | 2018-12-16 06:00 | NUR ---
RADIOLOGY PAGED Called radiology again in regards to the stat US carotid. Spoke to Rahul, the vascular US tech, who states that he will do the US.
[2018-12-16] MEDS: InsuLIN REG 1unit/0.01ml Soln (100units/ml) SC SCH ×4 (06:22→22:27)
[2018-12-16] MEDS: ACCU-CHEK COMFORT CURVE STRIP VI SCH ×4 (06:22→22:28)
--- NOTE | 2018-12-16 07:25 | NUR ---
CLOSING SHIFT NOTE Care has been endorsed to day shift RN.
--- NOTE | 2018-12-16 07:30 | NUR ---
OPENING SHIFT NOTE RECEIVED REPORT FROM [facility] NURSE, ASSUMED CARE OF PATIENT. PATIENT IS A&OX4 AND DENIES ANY C/O PAIN OR DISTRESS AT THIS TIME. PATIENT BED IS IN LOW POSITION, BRAKES APPLIED, BED RAILS UP X2 AND CALL LIGHT WITHIN REACH. EDUCATED PATIENT ON POC AND CALL LIGHT USE PRN, PATIENT VERBALIZED UNDERSTANDING. CONTINUING TO MONITOR Q1 HR AND PRN
--- NOTE | 2018-12-16 08:30 | NUR ---
AMA TO SMOKE PATIENT REQUESTING TO GO OUTSIDE TO SMOKE, PATIENT EDUCATED ON DANGERS ASSOCIATED WITH LEAVING THE FLOOR, PATIENT VERBALIZED UNDERSTANDING. PATIENT SIGNED AMA TO SMOKE. PATIENT WHEEL CHAIRED SELF OUT TO SMOKE.
[2018-12-16 08:57] VITALS: BP 153/102
[2018-12-16] MEDS: ENALAPRIL MALEATE 2.5 MG TAB PO SCH (09:01)
[2018-12-16] MEDS: METOPROLOL TARTRATE 50 MG TAB PO SCH ×2 (09:02→22:27)
[2018-12-16] MEDS: ASPirin 81 mg TAB PO SCH (09:02)
[2018-12-16] MEDS: PANTOPRAZOLE 40 MG TAB PO SCH (09:02)
[2018-12-16] MEDS: cefTRIAXone 1GM/50ML D5W 50 ML IV SCH (09:03)
[2018-12-16] MEDS: NITROGLYCERIN 0.2MG/HR TOPICAL PATCH TD SCH (09:03)
[2018-12-16] MEDS: ENOXAPARIN SOD 40 MG/0.4 ML SYRINGE SC SCH (09:04)
--- NOTE | 2018-12-16 09:30 | NUR ---
C/O CONSTIPATION PATIENT STATES HE HAS NOT HAD A BM FOR SEVERAL DAYS AND STATES HE IS FEELING UNCOMFORTABLE. EDUCATED PATIENT ON NON PHARMACOLOGIC MEANS OF PROMOTING BM, PT VERBALIZED UNDERSTANDING. MEDICATED PATIENT WITH PRN FOR CONSTIPATION
[2018-12-16 13:00] VITALS: BP 161/104
[2018-12-16] MEDS ORDERED: amLODIPine BESYLATE 5 MG TAB PO ONE (13:15)
[2018-12-16 17:00] VITALS: BP 178/97
[2018-12-16] MEDS: traMADol HCL 50 MG TAB PO PRN ×2 (17:07→23:45)
[2018-12-16] MEDS: LABETALOL HCL 5 MG/ML ML 20ML VIAL IV PRN (17:45)
--- NOTE | 2018-12-16 19:21 | NUR ---
Opening Shift Note Assumed care of patient, awake and alert x 4. No S/S of distress/SOB. Bed is in lowest position and locked. Call light within reach. Board updated. Tele box number matches monitor and leads are in correct placement. Instructed on POC and to call for assist PRN, will continue to monitor for changes Q1hr and PRN. Addendum: 12/17/18 at 3 by SOCORRO PICHARDO RN Wrong time. Disregard
[2018-12-16 19:48] VITALS: BP 156/90
[2018-12-16] MEDS: ATORVASTATIN 20 MG TAB PO SCH (22:27)
[2018-12-16] MEDS: ACETAMINOPHEN 500 MG TAB PO PRN (22:28)
[2018-12-17] VITALS (7 sets, daily range): BP systolic 146–183; BP diastolic 91–113
[2018-12-17] MEDS: InsuLIN REG 1unit/0.01ml Soln (100units/ml) SC SCH ×4 (06:22→21:50)
[2018-12-17] MEDS: traMADol HCL 50 MG TAB PO PRN ×3 (06:23→22:51)
[2018-12-17] MEDS: ACCU-CHEK COMFORT CURVE STRIP VI SCH ×4 (06:23→21:50)
--- NOTE | 2018-12-17 06:45 | NUR ---
patient went downstairs once during the night to use smoking AMA. Patient returned promptly within 30 minutes of leaving.
--- NOTE | 2018-12-17 07:30 | NUR ---
OPENING SHIFT NOTE RECEIVED REPORT FROM [facility] NURSE, ASSUMED CARE OF PATIENT. PATIENT IS A&OX4 AND C/O 5/10 [place], WILL MEDICATE PER MAR. PATIENT BED IS IN LOW POSITION, BRAKES APPLIED, BED RAILS UP X2 AND CALL LIGHT WITHIN REACH. EDUCATED PATIENT ON POC AND CALL LIGHT USE PRN, PATIENT VERBALIZED UNDERSTANDING. CONTINUING TO MONITOR Q1 HR AND PRN
[2018-12-17] MEDS: ACETAMINOPHEN 500 MG TAB PO PRN (08:29)
[2018-12-17] MEDS: PANTOPRAZOLE 40 MG TAB PO SCH (08:40)
[2018-12-17] MEDS: ENOXAPARIN SOD 40 MG/0.4 ML SYRINGE SC SCH (08:40)
[2018-12-17] MEDS: cefTRIAXone 1GM/50ML D5W 50 ML IV SCH (08:40)
[2018-12-17] MEDS: ASPirin 81 mg TAB PO SCH (08:41)
[2018-12-17] MEDS: METOPROLOL TARTRATE 50 MG TAB PO SCH ×2 (08:42→21:49)
[2018-12-17] MEDS: ENALAPRIL MALEATE 2.5 MG TAB PO SCH (08:42)
[2018-12-17] MEDS ORDERED: amLODIPine BESYLATE 5 MG TAB PO SCH ×2 (10:00)
--- NOTE | 2018-12-17 11:15 | NUR ---
PATIENT OUTSIDE PATIENT LEFT VIA WHEELCHAIR TO SMOKE, PATIENT WAS EDUCATE DON RISKS WITH THE ELEVATION OF HIS BLOOD PRESSURE, PATIENT VERBALIZED UNDERSTANDING
--- NOTE | 2018-12-17 11:28 | NUR ---
PATIENT BACK ON UNIT PATIENT ARRIVED VIA WHEELCHAIR WITH NO DISTRESS NOTED
[2018-12-17] MEDS ORDERED: amLODIPine BESYLATE 5 MG TAB PO ONE (11:30)
--- NOTE | 2018-12-17 11:30 | NUR ---
BP ELEVATED PRESSURE AT 178/113, LABETALOL GIVEN ORDERED, PATIENT IS ASYMPTOMATIC, CONTINUING TO MONITOR PATIENT
[2018-12-17] MEDS: LABETALOL HCL 5 MG/ML ML 20ML VIAL IV PRN (11:39)
--- NOTE | 2018-12-17 13:00 | NUR ---
AT BEDSIDE DR MARCH AT BEDSIDE
[2018-12-17] MEDS ORDERED: HCTZ 25 MG TAB PO ONE (13:15)
--- NOTE | 2018-12-17 17:02 | NUR ---
PT OUTSIDE TO SMOKE PATIENT LEFT VIA WHEELCHAIR OUTSIDE TO SMOKE, EDUCATED ON RISKS AND VERBALIZED UNDERSTANDING.
--- NOTE | 2018-12-17 17:16 | NUR ---
PATIENT RETURNED NO CURRENT S/S OF DISTRESS NOTED, CONTINUING TO MONITOR
--- NOTE | 2018-12-17 19:21 | NUR ---
Opening Shift Note Assumed care of patient, awake and alert x 4. No S/S of distress/SOB. Bed is in lowest position and locked. Call light within reach. Board updated. Tele box number matches monitor and leads are in correct placement. Instructed on POC and to call for assist PRN, will continue to monitor for changes Q1hr and PRN.
[2018-12-17] MEDS: ATORVASTATIN 20 MG TAB PO SCH (21:48)
[2018-12-17] MEDS ORDERED: ENALAPRIL MALEATE 2.5 MG TAB PO SCH (22:00)
[2018-12-18 04:53] VITALS: BP 143/97
[2018-12-18] MEDS: ACCU-CHEK COMFORT CURVE STRIP VI SCH ×4 (06:02→22:16)
[2018-12-18] MEDS: InsuLIN REG 1unit/0.01ml Soln (100units/ml) SC SCH ×4 (06:02→22:27)
[2018-12-18 06:18] LABS: Potassium 4.3 mmol/L (3.5-5.1)
[2018-12-18 06:25] LABS: BUN/Creatinine Ratio 16.3; Calcium 8.8 mg/dL (8.5-10.1)
--- NOTE | 2018-12-18 06:33 | NUR ---
Patient went downstairs once to use his smoking AMA and returned promptly within 30 minutes.
--- NOTE | 2018-12-18 08:53 | NUR ---
Opening Shift Note Assumed care of patient, awake and alert. Patient returned from smoking via wheelchair. Orientated patient to RNPaula. Informed patient about smoking policy. No S/S of distress/SOB. Patient reported headache pain of 10/10, nonradiating, and pain is consistent. Will medicated patient per protocol. Instructed on POC and to call for assist PRN, will continue to monitor for changes Q1hr and PRN.
[2018-12-18 09:00] VITALS: BP 170/97
[2018-12-18] MEDS: ENOXAPARIN SOD 40 MG/0.4 ML SYRINGE SC SCH (09:29)
[2018-12-18] MEDS: cefTRIAXone 1GM/50ML D5W 50 ML IV SCH (09:29)
[2018-12-18] MEDS: amLODIPine BESYLATE 5 MG TAB PO SCH (09:30)
[2018-12-18] MEDS: PANTOPRAZOLE 40 MG TAB PO SCH (09:31)
[2018-12-18] MEDS: ASPirin 81 mg TAB PO SCH (09:31)
[2018-12-18] MEDS: METOPROLOL TARTRATE 50 MG TAB PO SCH ×3 (09:32→22:15)
[2018-12-18] MEDS: traMADol HCL 50 MG TAB PO PRN ×2 (09:38→20:05)
[2018-12-18] MEDS ORDERED: HCTZ 25 MG TAB PO SCH (10:00)
[2018-12-18] MEDS: HCTZ 25 MG TAB PO SCH (10:00)
[2018-12-18] MEDS ORDERED: hydrALAZINE HCL 25 MG TAB PO SCH (10:00)
[2018-12-18 11:52] LABS: Hepatitis B Surface Antibody Negative
--- NOTE | 2018-12-18 12:00 | NUR ---
ROUNDING Dr Bhat rounding on patient with primary RN. Plan of care discussed including test results.
[2018-12-18] MEDS: LABETALOL HCL 5 MG/ML ML 20ML VIAL IV PRN (12:06)
--- NOTE | 2018-12-18 12:10 | NUR ---
Patient told RN he is on probation and calling to check in with property officer.
--- NOTE | 2018-12-18 12:25 | NUR ---
OFF UNIT Patient left unit via wheelchair. AMA in chart.
--- NOTE | 2018-12-18 12:33 | NUR ---
Return to unit Patient back on unit via wheelchair. No s/s distress.
[2018-12-18 13:24] VITALS: BP 176/95
[2018-12-18 14:12] LABS: Hepatitis B Core Total AB Negative
[2018-12-18 14:13] LABS: Hepatitis A Total Antibody Positive; Hepatitis B Surface Antigen Negative (Negative); Hepatitis C Antibody Negative (Negative)
[2018-12-18] MEDS ORDERED: cloNIDine HCL 0.1 MG TAB PO PRN (14:15)
--- NOTE | 2018-12-18 14:15 | NUR ---
BLOOD PRESSURE BP continues to be elevated even after administration of PRN and scheduled medications. Dr hBat made aware. Telephone orders received and noted.
--- NOTE | 2018-12-18 16:04 | NUR ---
OFF UNIT Patient taken off unit via wheelchair for MRI. Patient removed from Tele monitor, techs made aware. Will monitor for pt return.
--- NOTE | 2018-12-18 16:15 | NUR ---
Received referral to see pt who is alert and oriented times 3. Pt is homeless although he states he lives in a closed appliance store. Pt is on probation and checks in with his asset protection officer once a week. Pt states he has stayed at the homeless [facility] before but they asked him to leave if he did not take his meds. He stated that he ran out and they would not allow him to stay. Pt has no income except for food stamps. He wants to go to a placement but does not have the money. He also states he can't and won't work. He has be turned down several times for SSI.
--- NOTE | 2018-12-18 16:29 | NUR ---
MRI INCOMPLETE Patient unable to tolerate MRI. Doctor made aware. 1x dose of Ativan ordered. MRI will be attempted in morning.
[2018-12-18] MEDS ORDERED: LORazepam 2MG/ML-1ML VIAL IV ONE (16:45)
[2018-12-18 17:00] VITALS: BP 155/96
[2018-12-18 21:19] VITALS: BP 139/73
[2018-12-18] MEDS ORDERED: ENALAPRIL MALEATE 2.5 MG TAB PO SCH (22:00)
--- NOTE | 2018-12-18 22:08 | NUR ---
DR. SOMERS AT BEDSIDE SPEAKING TO PATIENT.
[2018-12-18] MEDS: hydrALAZINE HCL 25 MG TAB PO SCH (22:15)
[2018-12-18] MEDS: ATORVASTATIN 20 MG TAB PO SCH (22:15)
[2018-12-19 05:00] VITALS: BP 145/83
[2018-12-19] MEDS: ACCU-CHEK COMFORT CURVE STRIP VI SCH ×4 (06:23→21:43)
[2018-12-19] MEDS: InsuLIN REG 1unit/0.01ml Soln (100units/ml) SC SCH ×4 (06:27→21:50)
--- NOTE | 2018-12-19 07:30 | NUR ---
OPENING NOTE ASSUMED CARE OF PT. ALERT AND ORIENTED. NO SIGNS OF SOB/DISTRESS NOTED. DENIES ANY PAIN. BED SET TO LOWEST POSITION/LOCKED. BEDSIDE RAILS UP X2. CALL LIGHT WITHIN REACH. INSTRUCTED PT TO CALL FOR ASSISTANCE. DISCUSSED POC. WILL CONTINUE TO MONITOR Q1HR AND PRN.
[2018-12-19 09:00] VITALS: BP 147/91
[2018-12-19] MEDS ORDERED: LIDOCAINE 2%HCL (LOCAL ANESTH.) INJ 20ML MDV ONE (09:29)
[2018-12-19] MEDS: cefTRIAXone 1GM/50ML D5W 50 ML IV SCH (09:45)
[2018-12-19] MEDS: hydrALAZINE HCL 25 MG TAB PO SCH ×2 (09:46→21:38)
[2018-12-19] MEDS: METOPROLOL TARTRATE 50 MG TAB PO SCH ×2 (09:46→21:39)
[2018-12-19] MEDS: ASPirin 81 mg TAB PO SCH (09:47)
[2018-12-19] MEDS: amLODIPine BESYLATE 5 MG TAB PO SCH (09:47)
[2018-12-19] MEDS: HCTZ 25 MG TAB PO SCH (09:47)
[2018-12-19] MEDS: ENOXAPARIN SOD 40 MG/0.4 ML SYRINGE SC SCH (09:48)
[2018-12-19] MEDS: PANTOPRAZOLE 40 MG TAB PO SCH (10:38)
--- NOTE | 2018-12-19 12:34 | NUR ---
Nutrition Assessment Notes please see attached link for complete assessment Est. Needs ABW (107 kg): 2411-1581 kcal (23-25kcal/kgBW), 107-117 gms pro (1.0-1.1 gms/kgBW). Will continue to monitor pertinent labs and reassess nutrient need prn Addendum: 12/19/18 at [address] Amended: Links added.
--- NOTE | 2018-12-19 12:35 | NUR ---
PATIENT BACK ON UNIT VIA BED FROM LUMBAR PUNCTURE. NO SIGNS OF SOB/DISTRESS NOTED. WILL CONTINUE TO MONITOR Q1HR AND PRN.
[2018-12-19 13:00] VITALS: BP 139/79
[2018-12-19 14:22] LABS: CSF White Blood Cells 4 CUMM (0-5)
[2018-12-19 17:00] VITALS: BP 137/82
--- NOTE | 2018-12-19 20:00 | NUR ---
Opening Shift Note Assumed care of patient. Patient is awake and alert x4. No S/S of distress/SOB. Patient denies pain. Band-aid noted to patient's mid-lower back, no drainage noted. Instructed on POC and to call for assist PRN, will continue to monitor for changes Q1hr and PRN.
[2018-12-19 21:38] VITALS: BP 151/88
[2018-12-19] MEDS: ATORVASTATIN 20 MG TAB PO SCH (21:38)
[2018-12-19] MEDS: ENALAPRIL MALEATE 10 MG TAB PO SCH (21:39)
[2018-12-20 05:00] VITALS: BP 126/79
[2018-12-20] MEDS: hydrALAZINE HCL 25 MG TAB PO SCH ×3 (07:01→21:54)
[2018-12-20] MEDS: ACCU-CHEK COMFORT CURVE STRIP VI SCH ×4 (07:01→22:17)
[2018-12-20] MEDS: InsuLIN REG 1unit/0.01ml Soln (100units/ml) SC SCH ×4 (07:01→22:17)
[2018-12-20 09:00] VITALS: BP 146/89
[2018-12-20] MEDS: cefTRIAXone 1GM/50ML D5W 50 ML IV SCH (09:00)
[2018-12-20] MEDS: ASPirin 81 mg TAB PO SCH (10:05)
[2018-12-20] MEDS: HCTZ 25 MG TAB PO SCH (10:05)
[2018-12-20] MEDS: ENOXAPARIN SOD 40 MG/0.4 ML SYRINGE SC SCH (10:06)
[2018-12-20] MEDS: amLODIPine BESYLATE 5 MG TAB PO SCH (10:06)
[2018-12-20] MEDS: METOPROLOL TARTRATE 50 MG TAB PO SCH ×2 (10:06→21:59)
[2018-12-20] MEDS: PANTOPRAZOLE 40 MG TAB PO SCH (10:06)
--- NOTE | 2018-12-20 11:29 | NUR ---
Reassessed pt as he is not sure what he will he wants to do after D/C. Pt again informed forensic social worker that he had no income to go to a board and care. He is currently trying to get his nephew to go and get his clothes. The nephew has been unable to do so. Pt states he most likely return to his prior living arrangements. Pt was given the option of either going to [facility] or [facility]. Pt declined both. Pt will be provided a sack lunch on discharge.
--- NOTE | 2018-12-20 12:25 | NUR ---
Received referral to place pt n Rehab. Pt has agreed to go to [facility].
[2018-12-20 12:34] VITALS: BP 138/87
[2018-12-20 17:00] VITALS: BP 119/72
--- NOTE | 2018-12-20 17:34 | NUR ---
Per consult, patient received orders for SNF placement for PT. Referral faxed to [facility], they denied, faxed to [facility]. Addendum: 12/20/18 at 1738 by AMA WORKMAN Amended: Links added.
[2018-12-20 21:41] VITALS: BP 141/86
[2018-12-20] MEDS: ATORVASTATIN 20 MG TAB PO SCH (21:54)
[2018-12-20] MEDS: ENALAPRIL MALEATE 10 MG TAB PO SCH (21:55)
[2018-12-21] VITALS (8 sets, daily range): BP systolic 113–141; BP diastolic 65–81
[2018-12-21] MEDS: hydrALAZINE HCL 25 MG TAB PO SCH ×2 (05:44→15:23)
[2018-12-21] MEDS: InsuLIN REG 1unit/0.01ml Soln (100units/ml) SC SCH ×3 (06:52→17:00)
[2018-12-21] MEDS: ACCU-CHEK COMFORT CURVE STRIP VI SCH ×3 (06:52→19:13)
--- NOTE | 2018-12-21 07:16 | NUR ---
PATIENT IN BED ALERT AND ORIENTED. WAITING FOR PLACEMENT
[2018-12-21] MEDS: cefTRIAXone 1GM/50ML D5W 50 ML IV SCH (09:34)
[2018-12-21] MEDS: ASPirin 81 mg TAB PO SCH (09:35)
[2018-12-21] MEDS: HCTZ 25 MG TAB PO SCH (09:35)
[2018-12-21] MEDS: METOPROLOL TARTRATE 50 MG TAB PO SCH (09:36)
[2018-12-21] MEDS: PANTOPRAZOLE 40 MG TAB PO SCH (09:36)
[2018-12-21] MEDS: amLODIPine BESYLATE 5 MG TAB PO SCH (09:37)
[2018-12-21] MEDS: ENOXAPARIN SOD 40 MG/0.4 ML SYRINGE SC SCH (09:37)
--- NOTE | 2018-12-21 10:59 | NUR ---
PT Patient ambulating independently with no FWW along the hallway. D/C to nursing. Addendum: 12/21/18 at 1101 by MIKE PAGE PTT Amended: Links added.
--- NOTE | 2018-12-21 17:31 | NUR ---
PATIENT DISCHARGING HOME DUE TO NOT MEETING CRITERIA FOR PLACEMENT. PRESCRIPTIONS CALLED INTO PHARMACY PER DR CORTEZ'S REQUEST
--- NOTE | 2018-12-21 17:52 | NUR ---
Discharge planning per consult received, patient had orders to discharge to SNF. Referral faxed to [facility], placed a follow up call, and per Lizy, they agreed to accept this patient. Sent auth request to [facility], however patient does not meet SNF criteria for PT as he is ambulating 200ft with a FWW, and on 12.21.18, was ambulating independently without a FWW. Placed a call to [facility], advised to notify the doctor (Home) that patient does not meet criteria and to advise of his next discharge plan. Zachary called back and said Dr. Bhat to continue with his blood pressure meds. Tried to call Dr. Bhat three times to no avail to clarify the discharge medications. Addendum: 12/21/18 at 1809 by AMA WORKMAN Amended: Links added.
--- NOTE | 2018-12-21 19:14 | NUR ---
PATIENT DISCHARGED HOME. ALL IV ACCESS DISCONTINUED. ALL DISCHARGE PAPERWORK SIGNED. ALL DISCHARGE INSTRUCTIONS GIVEN. TELEMETRY BOX REMOVED AND RETURNED TO [place]. [facility]AXI VOUCHER PROVIDED TO PATIENT TO [address] [place] [address]
== END 2018-12-21 19:00 | disposition home or self-care (01) | DRG 190 ==
LOC: ER 14:03 → EDBD 14:03 → TELE 14:04 → TELE-WESTW 18:24
PROVIDERS: ADMIT Internal Medicine; ATTEND Internal Medicine
PROC: 4A023N7 Measurement of Cardiac Sampling and Pressure, Left Heart, Percutaneous Approach (ICD-10-PCS; principal; 2018-12-15)
PROC: B2111ZZ Fluoroscopy of Multiple Coronary Arteries using Low Osmolar Contrast (ICD-10-PCS; 2018-12-15)
PROC: B2151ZZ Fluoroscopy of Left Heart using Low Osmolar Contrast (ICD-10-PCS; 2018-12-15)
PROC: B41C1ZZ Fluoroscopy of Pelvic Arteries using Low Osmolar Contrast (ICD-10-PCS; 2018-12-15)
PROC: 009U3ZX Drainage of Spinal Canal, Percutaneous Approach, Diagnostic (ICD-10-PCS; 2018-12-19)
PROC: B01B1ZZ Fluoroscopy of Spinal Cord using Low Osmolar Contrast (ICD-10-PCS; 2018-12-19)
DX: I21.4 Non-ST elevation (NSTEMI) myocardial infarction (principal); E11.22 Type 2 diabetes mellitus with diabetic chronic kidney disease; E11.65 Type 2 diabetes mellitus with hyperglycemia; A52.3 Neurosyphilis, unspecified; I16.1 Hypertensive emergency; I16.0 Hypertensive urgency; N18.9 Chronic kidney disease, unspecified; I12.9 Hypertensive chronic kidney disease with stage 1 through stage 4 chronic kidney disease, or unspecified chronic kidney disease; E66.9 Obesity, unspecified; N39.0 Urinary tract infection, site not specified; E78.5 Hyperlipidemia, unspecified; I13.10 Hypertensive heart and chronic kidney disease without heart failure, with stage 1 through stage 4 chronic kidney disease, or unspecified chronic kidney disease; R55 Syncope and collapse; F17.210 Nicotine dependence, cigarettes, uncomplicated; Z59.0 Homelessness; Z83.3 Family history of diabetes mellitus; Z91.14 Patient's other noncompliance with medication regimen; Z82.49 Family history of ischemic heart disease and other diseases of the circulatory system; Z91.19 Patient's noncompliance with other medical treatment and regimen
CPT/HCPCS: 36415; 62272; 70450; 70551; 71045; 75736; 76775; 80048; 80053; 80061; 80307; 81001; 82550; 82607; 82746; 82945; 82962; 83036; 83735; 83880; 84157; 84439; 84443; 84484; 85025; 85379; 85610; 85652; 85730; 86141; 86592; 86703; 86704; 86706; 86708; 86803; 87070; 87081; 87086; 87205; 87340; 89051; 93005; 93458; 93886; 96365; 96375; 97116; 97163; 97530; 99152; 99153; G0378; J0696; J1815; J2250

== ENCOUNTER 2019-01-07 09:47 | Emergency (ER) | payer MEDICAID ==
[~2019-01-07] VITALS: Ht 193 cm; Wt 3.0 kg
[2019-01-07 10:37] LABS: Urine Bacteria FEW /hpf (None Seen); Urine Blood Negative /uL (Negative); Urine Mucus FEW (None Seen); Urine Specific Gravity 1.016 (1.001-1.035); Urine WBC 213 /hpf (0 - 3); Urine WBC Clumps PRESENT /hpf (None Seen)
[2019-01-07 11:31] LABS: Basophils # (auto) 0.1 uL; Basophils % (auto) 0.6 % (0.0-2.0); Eosinophils # (auto) 0.1 uL; Eosinophils % (auto) 1.1 % (0.0-7.0); Hematocrit 42.5 % (41.0-53.0); Hemoglobin 14.1 g/dL (13.5-17.5); Lymphocytes # (auto) 3.6 uL; Lymphocytes % (auto) 29.7 % (10.0-50.0); Mean Corpuscular Hemoglobin 28.4 pg (28.0-32.0); Mean Corpuscular Hgb Conc. 33.1 g/dL (32.0-36.0); Mean Corpuscular Volume 85.6 fL (80.0-100.0); Monocytes # (auto) 0.5 uL; Neutrophils # (auto) 7.8 uL; Neutrophils % (auto) 64.6 % (37.0-80.0); Nucleated Red Blood Cells % 0.2 %; Platelet Count (auto) 288 10^3/uL (140-450); Red Blood Cells 4.96 10^6/uL (4.5-5.90); Red Cell Distribution Width 14.1 % (11.8-14.3); White Blood Cell 12.1 10^3/uL (4.4-10.8)
[2019-01-07 11:36] LABS: Albumin 3.8 g/dL (3.4-5.0); Calcium 10.4 mg/dL (8.5-10.1); Potassium 3.5 mmol/L (3.5-5.1)
[2019-01-07 11:41] LABS: BUN/Creatinine Ratio 11.5; Bilirubin, Total 0.4 mg/dL (0.2-1.0); Total Protein 8.4 g/dL (6.4-8.2)
[2019-01-07 13:23] VITALS: BP 174/107
== END 2019-01-07 13:22 | disposition home or self-care (01) ==
LOC: EDBD 09:47 → ER 09:57
DX: I16.0 Hypertensive urgency (principal); I15.9 Secondary hypertension, unspecified; N39.0 Urinary tract infection, site not specified; E11.9 Type 2 diabetes mellitus without complications; E78.5 Hyperlipidemia, unspecified; F17.210 Nicotine dependence, cigarettes, uncomplicated; Z79.899 Other long term (current) drug therapy
CPT/HCPCS: 36415; 71046; 80053; 81001; 85025; 93005